=== PATIENT | female | born 1985 | race Caucasian/White ===

== ENCOUNTER 2018-03-27 11:37 | Day surgery (SDC) | payer BC ==
[2018-03-27] MEDS ORDERED: fentaNYL* 50 MCG/ML 2 ML VIAL (100 MCG VIAL) IV ONE (12:00)
[2018-03-27] MEDS: NS 0.9% 1000 ML* 2,000 ML IV ONE (12:13)
--- NOTE | 2018-03-27 12:13 | ED ---
Abdominal Pain/Female - HPI Summary HPI Summary: This is unique Wihte documenting for attending David Ac MD. This patient is a 33 year old F BIBA accompanied by a male and female with a chief complaint of RLQ abd pain radiating down the right leg since just B[employer]CH[employer]. Pt was getting an at [facility] at 9:00AM when she started having symptoms. The patient rates the pain 7/10 in severity. Patient reports SOB, pallor of the lips, KAHN, photophobia, fidgeting, and seizure. Patient denies difficulty walking. Pt was already having a miscarriage before going to [facility]. In the recovery area, pt had LOC and was unresponsive with dilated pupils following a spontaneous resolution. Pts vitals remained normal and she did not have convulsions during her LOC. Pt was 7 weeks and they were able to evacuate the uterus. Pt had a recent syncopal episode while on the phone with her significant other where she fell to the floor and was found by EMS. Following this past episode, pt followed up with her neurologist who said everything was normal. The woman from [facility] states that the pt may have a uterine cyst, discovered today. PMHx seizure, chronic migraines. 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 - [facility], sig other Onset/Duration: Sudden Onset Timing: Constant Severity Initially: Moderate Severity Currently: Moderate Pain Intensity: 7 Pain Scale Used: 0-10 Numeric Location: Discrete At: RLQ Radiates: Yes Radiates to: Other - leg Allergies/Adverse Reactions: Allergies Allergy/AdvReac Type Severity Reaction Status Date / Time morphine Allergy Rash Verified 03/27/18 11:51 PMH/Surg Hx/FS Hx/Imm Hx Neurological History: Reports: Hx Migraine, Hx Seizures - 1 Infectious Disease History: No Infectious Disease History: Denies: Traveled Outside the [place] in Last 30 Days - Family History Known Family History: Positive: Seizure Disorder - Social History Alcohol Use: None Substance Use Type: Reports: None Smoking Status (MU): Never Smoked Tobacco Review of Systems Positive: Photophobia Positive: Other - blue lips Positive: Shortness Of Breath Positive: Abdominal Pain Negative: Decreased ROM Positive: Headache, Syncope All Other Systems Reviewed And Are Negative: Yes Physical Exam - Summary Physical Exam Summary: Appearance: Well-appearing, Well-nourished, lying in bed comfortably Skin: Warm, dry, no obvious rash Eyes: sclera anicteric, no conjunctival pallor ENT: mucous membranes moist, pharynx appears normal Neck: Supple, nontender Respiratory: Clear to auscultation, no signs of respiratory distress Cardiovascular: Normal S1, S2. No murmurs. Normal distal pulses in tibial and radial bilaterally. Abdomen: Soft, normal active bowel sounds present. Diffuse generalized tenderness. Musculoskeletal: Normal, Strength/ROM Intact Neurological: A&Ox3, awake and alert, mentation is normal, speech is fluent and appropriate Psychiatric: affect is normal, does not appear anxious or depressed Triage Information Reviewed: Yes Vital Signs On Initial Exam: Initial Vitals Temp Pulse Resp BP Pulse Ox 99.5 F 87 18 106/72 98 03/27/18 11:39 03/27/18 11:39 03/27/18 11:39 03/27/18 11:39 03/27/18 11:39 Vital Signs Reviewed: Yes Diagnostics - Vital Signs Vital Signs Temp Pulse Resp BP Pulse Ox 03/27/18 12:00 83 18 97 03/27/18 11:45 91 106/72 97 03/27/18 11:44 99 98 03/27/18 11:39 99.5 F 87 18 106/72 98 - Laboratory Result Diagrams: 03/27/18 12:09 03/27/18 12:09 Lab Statement: Any lab studies that have been ordered have been reviewed, and results considered in the medical decision making process. - Ultrasound No standard instances Ultrasound Interpretation Completed By: Radiologist - 1. ABNORMALLY THICKENED HETEROGENEOUS ENDOMETRIUM SUSPICIOUS FOR RETAINED PRODUCTS OF CONCEPTION OR HEMORRHAGE. 2. RETROVERTED UTERUS. ED Physician reviewed this report Abdominal Pain Fem Course/Dx - Diagnoses Provider Diagnoses: Incomplete - Provider Notifications Discussed Care Of Patient With: Pauline Apodaca Time Discussed With Above Provider: 13:29 Instructed by Provider To: MD Will See In ED Discharge - Sign-Out/Discharge Documenting (check all that apply): Patient Departure - Discharge Plan Condition: Stable Disposition: ADMITTED TO [facility] - Billing Disposition and Condition Condition: STABLE Disposition: Admitted to [facility]
[2018-03-27] MEDS ORDERED: Ondansetron INJ* 2 MG/ML VIAL IV ONE (12:16)
[2018-03-27] MEDS ORDERED: Ondansetron INJ* 2 MG/ML VIAL ONE (12:16)
[2018-03-27 12:20] LABS: ABS Basophils 0 10^3/ul (0-0.2); ABS Eosinophils 0 10^3/ul (0-0.6); ABS Lymphocytes 1.2 10^3/ul (1.0-4.8); ABS Monocytes 0.4 10^3/ul (0-0.8); ABS Neutrophils 7.5 10^3/ul (1.5-7.7); ABS Nucleated RBC 0 10^3/ul; Eosinophil % 0.3 % (0-6); Hematocrit 34 % (35-47); Hemoglobin 11.7 g/dl (12.0-16.0); Mean Corpuscular HGB Conc 34 g/dl (31-36); Mean Corpuscular Hemoglobin 30 pg (27-31); Mean Corpuscular Volume 88 fL (80-97); Mean Platelet Volume 7.5 um3 (7.4-10.4); Nucleated Red Blood Cells % 0.1; Platelet Count 309 10^3/ul (150-450); Red Blood Count 3.88 10^6/ul (4.00-5.40); Red Cell Distribution Width 14 % (10.5-15); White Blood Count 9.2 10^3/ul (3.5-10.8)
--- NOTE | 2018-03-27 12:58 | RAD ---
INDICATION: Abdominal pain status post this morning. COMPARISON: There are no prior studies available for comparison. TECHNIQUE: Multiple real-time transvaginal images of the pelvis were obtained. FINDINGS: The uterus is retroverted and mildly enlarged consistent with the patient's recent . The uterus measured 10.9 x 6.5 x 7.2 cm. The endometrial echo is abnormally thickened and heterogeneous measuring up to 2.4 cm in thickness. The right ovary measured 4.0 x 2.4 x 3.2 cm. The left ovary measured 3.9 x 1.9 x 1.9 cm. There is vascular flow within both ovaries. There is a 1.8 x 1.7 x 1.8 cm right ovarian simple cyst. No free intraperitoneal fluid is seen. IMPRESSION: 1. ABNORMALLY THICKENED HETEROGENEOUS ENDOMETRIUM SUSPICIOUS FOR RETAINED PRODUCTS OF CONCEPTION OR HEMORRHAGE. 2. RETROVERTED UTERUS.
[2018-03-27] MEDS ORDERED: fentaNYL* 50 MCG/ML 2 ML VIAL (100 MCG VIAL) IV SLOW PU ONE (13:10)
[2018-03-27] MEDS ORDERED: fentaNYL* 50 MCG/ML 2 ML VIAL (100 MCG VIAL) IV SLOW PU PRN (15:31)
[2018-03-27] MEDS ORDERED: DOXYcycline IV* 100 MG in NS 0.9% 250 ML* 250 ML IVPB ONE (16:45)
--- NOTE | 2018-03-27 16:45 | HP ---
H&P (Free Text) History and Physical: [facility] for an MAB measuring 7.6wks. She had the procedure around 9am with a paracervical block but had significant pain. She then had a repeat procedure due to continued bleeding around 10am. She received 800mcg misoprostol and 0.2mg methergine. EBL was 400ml. After that procedure she apparently had a vasovagal episode and what the pt is calling a seizure where she was briefly unresponsive. Then they called an ambulance and she was brought to the ED. She has been having moderate bleeding since the procedure but complains mostly of right lower abdominal pain. She also has pain across to the middle of her abdomen. Describes the pain as sharp. She has received 2 doses of fentanyl in the ED. ROS: some nausea after the procedure, headaches Med Hx: headaches Sx Hx: CS x2 - the last 1 was 5mo ago. Store Loss Prevention Manager Hx: , SABx1 ( [facility]) This was not a planned but it was a missed AB. The last CS was in [place] and was done several weeks early (with documented lung maturity) due to upper abdominal pain. Soc Hx: denies tobacco, alcohol or illicit drug use. Labs: see results. slightly anemic Sono: thickened endometrium, suspicious for retained POC. Normal ovaries, no free fluid in pelvis PE: Gen: mild distress Abd: soft, mod tenderness across lower abdomen Pelvic: Uterus slightly enlarged, general tenderness over uterus. Assessment: Retained POC s/p suction aspiration. Stable. Plan: Suction D&C
[2018-03-27] MEDS ORDERED: fentaNYL* 50 MCG/ML 2 ML VIAL (100 MCG VIAL) ONE ×2 (17:47→18:45)
[2018-03-27] MEDS ORDERED: Midazolam* 1 MG/ML 5 ML VIAL (5 MG) ONE (17:47)
[2018-03-27] MEDS ORDERED: Bupivacaine 0.25% W/EPI* 10 ML SDV ONE (18:05)
[2018-03-27] MEDS ORDERED: Midazolam* 1 MG/ML 2 ML VIAL (2 MG) ONE (18:22)
[2018-03-27] MEDS ORDERED: Misoprostol TAB* 200 MCG ONE (18:25)
[2018-03-27] MEDS ORDERED: Propofol* 10 MG/ML 20 ML BTL IV PUSH ONE (18:26)
[2018-03-27] MEDS ORDERED: Ketorolac INJ* 30 MG/ML 1 ML VIAL ONE (18:38)
[2018-03-27] MEDS ORDERED: HYDROmorphone INJ* 0.5 MG/0.5 ML SYRINGE IV PRN (18:39)
[2018-03-27] MEDS ORDERED: Ketorolac INJ* 30 MG/ML 1 ML VIAL IV PRN (18:39)
[2018-03-27] MEDS ORDERED: Naloxone* 0.4 MG/ML 1 ML VIAL IV PRN (18:39)
[2018-03-27] MEDS ORDERED: Acetaminophen TAB* 325 MG PO PRN (18:39)
[2018-03-27] MEDS: fentaNYL* 50 MCG/ML 2 ML VIAL (100 MCG VIAL) IV PRN ×3 (18:46→19:08)
[2018-03-27] MEDS ORDERED: oxyCODONE/Acetamin 5/325 MG* TAB ONE (19:12)
[2018-03-27 19:48] VITALS: BP 118/67
[2018-03-27] MEDS ORDERED: Ibuprofen TAB* 600 MG PO PRN (19:59)
[2018-03-27] MEDS ORDERED: oxyCODONE/Acetamin 5/325 MG* TAB PO PRN (19:59)
--- NOTE | 2018-03-28 03:05 | OP ---
DATE OF OPERATION: 03/27/18 - [facility] DATE OF : 85 SURGEON: Pauline Apodaca MD ANESTHESIA: MAC and local paracervical block. PRE-OP DIAGNOSIS: Retained products of conception. POST-OP DIAGNOSIS: Retained products of conception. OPERATIVE PROCEDURE: An ultrasound guided suction, dilatation and curettage. FINDINGS: Slightly enlarged uterus with a small amount of retained products of conception. Good hemostasis after procedure. SPECIMEN: Products of conception. ESTIMATED BLOOD LOSS: 50 mL. FLUID: Crystalloid. DRAINS: Clear urine draining from bladder prior to procedure. COMPLICATIONS: None. COUNTS: Correct. DESCRIPTION OF PROCEDURE: The patient was taken to the operating room where she was given monitored anesthesia care. She was prepped and draped in the dorsal lithotomy position in a Candy Cane stirrups. Exam under anesthesia revealed a mildly enlarged uterus. Two speculums were placed into the vagina to expose the cervix. Anterior lip of the cervix was grasped with single-tooth tenaculum. The uterus was sounded to 10 cm. Paracervical block was given with 0.25% Marcaine with epinephrine injected at the 2 o'clock, 5 o'clock, 7 o'clock and 11 o'clock positions around the cervix. The cervix was easily dilated until size 10, curved suction cannula could be inserted. The suction device was assembled and turned on and the uterine contents were gently curetted. A small amount of products of conception were noted. This was all done under ultrasound guidance. Eventually a gritty texture was felt in all quadrants of the uterus and bleeding was very minimal. Therefore the procedure was ended, good hemostasis was noted where the tenaculum site was. The speculums were removed. The patient was placed back in supine position. Moved to the stretcher and taken to recovery room in stable condition. [id number]/[facility] #: [id number] [facility] HOSPITALMaurice
== END 2018-03-27 20:32 | disposition home or self-care (01) ==
LOC: ED 11:37 → OR 16:51
PROVIDERS: ATTEND Obstetrics & Gynecology
DX: O07.1 Delayed or excessive hemorrhage following failed attempted termination of pregnancy (principal); R10.31 Right lower quadrant pain; R06.02 Shortness of breath; R51 Headache; R55 Syncope and collapse; M79.604 Pain in right leg; R11.0 Nausea
CPT/HCPCS: 36415; 76830; 80053; 83605; 85025; 99285; A9270-GY; J1885; J2250; J2405; J2704; J3010